=== PATIENT | female | born 1945 | race Caucasian/White ===

== ENCOUNTER 2016-10-01 05:54 | Day surgery (SDC) | payer MEDICARE, OTHER ==
[~2016-10-01] VITALS: Ht 161.3 cm; Wt 62.1 kg
[~2016-10-01 05:54] MED LIST: ASPI-973 PO; ATEN-155 PO; CHOL400T PO; CIPR-231 PO; DIAZ2TAB2 PO; IRON18TA PO; LEVO500T16 PO; NITR100 PO; ONDA-54 PO; PROM12.510 PO; RAMI10CA31 PO; VALS80TA25 PO; VIT1TABL83 PO
[2016-10-01] MEDS ORDERED: fentaNYL-PF 50 mCg/mL 2 mL Inj ONE (05:55)
[2016-10-01] MEDS ORDERED: Ketamine 10 mg/mL 20 mL Inj ONE (05:55)
[2016-10-01] MEDS ORDERED: CeFAZolin 2 Gm/50 mL D5W IV Premix IV SCH (06:00)
[2016-10-01] MEDS: Lactated Ringer's 1,000 ML IV SCH ×2 (06:09→07:58)
[2016-10-01 06:30] VITALS: BP 121/58; PULSE 81; RESP 19; O2SAT 97
[2016-10-01 06:53] VITALS: BP 121/58; PULSE 81; RESP 19; O2SAT 97
--- NOTE | 2016-10-01 07:11 | PCM.HPANE ---
Patient Data Surgeon Admitting Provider: Attending Provider:Katrin Sosa MD Primary Care Physician:Michael Breen Other Provider:Vish Hurst Anesthesia Reason for Visit Ovarian Cancer Ht/WT & BMI Height (Feet): 5 Height (Inches): 3.50 Weight (Kilograms): 62.100 Body Mass Index 23.00 Allergies Coded Allergies: Sulfa (Sulfonamide Antibiotics) (Verified Allergy, Severe, Facial swelling , 04/08/15) morphine (Verified Allergy, Severe, Catatonic state, 04/08/15) Past Anesthesia History Anesthesia History: Denies:: Abnormal Airway, Anesthesia Reactions, Difficult Intubation, Fam Anesthesia Reaction Diabetes History Hx Diabetes?: No MRSA MRSA: No Medications Blood Thinner: Aspirin Hypertension Medication: Yes Home Meds Incl Beta Zeferino: Yes Date Beta Zeferino Taken: Sep 30, 2016 Time Beta Zefreino Taken: 1800 Reported Medications Nitrofurantoin Monohyd/M-Cryst (MacroBid)100 Mg [id number] Mg PO BID Ref 0 09/25/16 Diazepam 2 Mg Tablet2 Mg PO DIRECTED PRN For Anxiety Ref 0 09/25/16 Vit B Comp/C/FA/Iron/Vit E (Vitamin B Complex Tablet)1 Each Tablet1 Each PO DAILY 09/25/16 Iron 18 Mg Lntpzv53 Mg PO DAILY 09/25/16 Cholecalciferol (Vitamin D3) (Vitamin D3)400 Unit [id number] Unit PO DAILY 09/25/16 Atenolol (Tenormin)50 Mg Sqjlnt51 Mg PO BID 30 Days Ref 0 09/25/16 Ramipril (Altace)10 Mg Cuzvrzi41 Mg PO DAILY 09/25/16 Aspirin 81 Mg Vvqqlx55 Mg PO DAILY Ref 0 06/04/16 Valsartan 80 Mg Dnwqwl82 Mg PO DAILY 06/04/16 Discontinued Reported Medications Levofloxacin (Levaquin)500 Mg Wwchyk225 Mg PO DAILY #14 TABLET Ref 0 09/30/16 Ondansetron 8 Mg Tablet8 Mg PO Q8H PRN For Nausea/Vomiting #30 TABLET Ref 3 09/30/16 Promethazine 12.5 Mg Kbpzpg68.5 Mg PO Q6H PRN For Nausea/Vomiting #30 TABLET Ref 3 09/30/16 Ciprofloxacin (Cipro)500 Mg Claeei346 Mg PO BID Ref 0 09/25/16 Ergocalciferol (Vitamin D2) (Vitamin D2)2,000 Unit Tablet2,000 Unit PO DAILY 06/04/16 Amoxicillin/Clav K 500-125 mg (Augmentin 500-125 mg)1 Each Tablet1 Tablet PO HS #20 TABLET Ref 0 06/04/16 Ramipril 10 Mg Enhhmlc95 Mg PO DAILY 06/04/16 History HEENT History: Positive for:: Cataracts (bilateral cataracts) Denies:: Abnormal Airway Difficult Intubation Dysphagia Hearing Problem Sinus Problem TMJ Denture Type: Full- Upper Full- Lower Hx of Heart Problems?: Yes Cardiovascular History: Positive for:: Hypertension Denies:: AICD Abdominal Aortic Aneurism Cardiac Surgery Chest Pain Congestive Heart Failure Edema Heart Murmur Irregular Heartbeat Pacemaker Hx of Respiratory Problem?: Yes Respiratory History: Positive for:: Pulmonary Embolism (hx of pg) Denies:: Asthma COPD Emphysema Oxygen Administration Pneumonia Tuberculosis Use of C-PAP Machine Hx Neurologic Problems?: Yes Neurological History: Denies:: CVA Dizziness Headaches Multiple Sclerosis Parkinson's Disease Hx of GI Problems?: Yes Gastrointestinal History: Positive for:: Liver Disease (ascites- paracentesis 4000ml done aug 2016) Denies:: Gastroesphageal Reflux Gastrointestinal Bleeding Heartburn Hepatitis Hiatal Hernia Rectal Bleeding Hx of Problems?: Yes Genitourinary History: Positive for:: Urinary Tract Infection (after catheterizations- ) Denies:: Kidney Stones Female Hx: Denies:: Currently Problems with Breasts? Skin History: Denies:: History Skin Disorders? Pressure Ulcers Hx Musculoskeletal Problems?: No Musculoskeletal History: Denies:: Back Injury Degenerative Joint Joint Replacement Musculoskeletal Trauma Hx of Psycho/Social Problems?: No Psycho Social History: Denies:: Anxiety Hx Depression Suicide Attempt Hx Surgeries?: Yes (cataracts, hyst, brain tumor, noe ) Hx Any Other Health Problems?: Yes Other History: Positive for:: Cancer (ovarian) Denies:: Thyroid Disease History Blood Transfusions: Denies:: Blood Transfusions Hx Diabetes: No Hx Alcohol Use: NoHx Substance Use: No Smoking Status: Former Smoker Have You Smoked inLast 12 mo: No Stop/Bang Treated for Sleep Apnea?: No Do You Have a CPAP Machine?: No P-Blood Pressure: treated: Yes B- Body Mass Index > 35 kg/m2: No A- Age over 50: Yes N- Neck Large Circumference: No G- Gender Male: No JUAN JOSE Risk Assessment: Low Risk, <3 Yes Risk Assessment Category Category 1A: Patient has history of documented sleep apnea, and HAS NOT received any narcotic, sedative or anesthesia administration during this stay. Category 1B: Patient has history of documented sleep apnea, and HAS received any narcotic , sedative or anesthesia administration during this stay Category 2: Patient has SUSPECTED Obstructive Sleep Apnea, and HAS received any narcotic , sedative or anesthesia administration during this stay. Category 3: Patient has SUSPECTED Obstructive Sleep Apnea and HAS NOT received narcotic, sedative or anesthesia administration during this stay. Category 4: Outpatient in Procedural Areas with known sleep apnea or who screen positive for High Risk via the STOP/BANG questionnaire. Exam Exam Vital Signs Vital Signs Date Time Temp Pulse Resp B/P Pulse Ox O2 Delivery O2 Flow Rate FiO2 10/01/16 06:53 35.4 81 19 121/58 97 Room Air 10/01/16 06:30 35.4 81 19 121/58 97 Room Air General Appearance: Alert, Oriented X3, Cooperative, No Acute Distress HEENT/AIRWAY: MP 2 Lungs: Clear to Auscultation, Normal Air Movement Heart: Exam Unremarkable, Regular Rate/Rhythm, No Murmurs/Rubs/Gallops Meds/Labs/Diagnostics Admission Meds Current Medications Lactated Ringer's (Lr) 1,000 ml @ 120 mls/hr Q8H20M IV Last administered on t 06:09; Start 10/01/16 at 05:00; Stop 10/01/16 at 13:19 Plan Impression Patient chart reviewed, patient interviewed and anesthestic plan with risks, benefits, and alternatives discussed, and informed consent obtained. NPO Status: 7pm ASA Physical Status: ASA3 Severe Disease (metastatic ovarian cancer) Anesthetic Plan: MAC Bene/Risks/Altern/Consents: Yes HP Complete Prior to Induction: Yes Forrest Rene MD Oct 01, 2016 07:11
[2016-10-01] MEDS ORDERED: Lactated Ringer's 1,000 ML IV SCH (07:14)
[2016-10-01] MEDS ORDERED: Lactated Ringer's 500 ML IV PRN (07:14)
[2016-10-01] MEDS ORDERED: Phenylephrine 10,000 mCg/mL Inj IVPUSH PRN (07:15)
[2016-10-01] MEDS ORDERED: Dexamethasone 4 mg/mL Inj IVPUSH PRN (07:15)
[2016-10-01] MEDS ORDERED: MetoCLOpramide 5 mg/mL 2 mL Inj IVPUSH PRN (07:15)
[2016-10-01] MEDS ORDERED: Ondansetron 2 mg/mL 2 mL Inj IVPUSH PRN (07:15)
[2016-10-01] MEDS ORDERED: EPHEDrine Sulfate 50 mg/mL Inj IVPUSH PRN (07:15)
[2016-10-01] MEDS ORDERED: fentaNYL-PF 50 mCg/mL 2 mL Inj IVPUSH PRN (07:15)
[2016-10-01] MEDS ORDERED: Bupivacaine-MPF 0.25%/EPI 30 mL Inj INJ ONE (07:57)
[2016-10-01] MEDS ORDERED: HepLOK Flush 100 unit/mL 5 mL Inj IVFLUSH ONE (08:03)
[2016-10-01] MEDS ORDERED: oxyCODONE-Acetamin 5-325 mg Tablet PO PRN (08:25)
--- NOTE | 2016-10-01 08:28 | PCM.SURGOP ---
Surgical Operative Report Date of Service: Oct 01, 2016 Pre Operative Diagnosis Ovarian cancer Post Operative Diagnosis Ovarian cancer Procedure: PowerPort placement, right internal jugular vein, with ultrasound guidance, with fluoroscopic guidance with interpretation Surgeon and Practical Nurse Clinical Coordinator: Surgeon: Katrin Sosa M.D. Assistants: Juana Brasher, MS 3 Indication for Procedure This is a 71-year-old woman who presented with intra-abdominal ascites and a right pleural effusion, and upon thorough workup was found to have ovarian cancer. PowerPort placement was requested for infusion of chemotherapy. Findings: The port tip was at the cavoatrial junction at the end of the procedure. The port aspirated and flushed easily. It was flushed with 10 mL of heparin solution, 100U/mL, at the end of the case. Procedure Details The patient was brought to the operating room and placed in supine position. General anesthesia with a LMA was smoothly induced. Antibiotics were infused. A warming blanket and SCDs were placed. A pause was performed to confirm the correct patient, procedure, site, and side. The right internal jugular vein was identified with the ultrasound. It was then accessed with a single stick, and a wire was threaded. Fluoroscopy confirmed the wires presence on the right side of the heart. The position of the tip of the wire at the cavoatrial junction was measured. A pocket was made in the tissue overlying the right pectoralis. The port was inserted and sewn into place with two interrupted Prolene stitches. It was then tunneled to the site of the wire using a small counter incision. The port catheter was then cut to the appropriate size as previously measured by the wires position on fluoroscopy. Dilation was then performed under fluoroscopic guidance. The sheath was left in place and the catheter was inserted. The sheath was removed and the two sides were found to be completely intact. The tip of the port was found to be positioned at the cavoatrial junction on fluoroscopy. The catheter was not kinked on fluoroscopy. The port aspirated and flushed easily at the end of the case. It was infused with 10 mL of 100 units/mL heparin solution. The subcutaneous tissue overlying the port was closed with a 3-0 Vicryl stitch. The skin at the port site, the wire access site, and counter incision was closed with a 4-0 subcuticular Monocryl stitch. Marcaine 0.5% with epinephrine was injected in the skin overlying the port as well as the stick site. A sterile dressing was placed. The patient tolerated the procedure well, and was awakened from general anesthesia and taken to the postoperative care unit in good condition. Complications There were no periprocedural complications identified. Surgical Specimen Removed: No Specimen sent to Pathology: No Anesthetic Plan: GA, MAC Grafts, Implants: Implants-See Implant Record Output, Estimated Blood Loss: 1 (ml) Blood Administration during valdovinos: No Katrin Sosa MD Oct 01, 2016 08:28
[2016-10-01 08:29] VITALS: BP 115/53; PULSE 83; RESP 12; O2SAT 95
[2016-10-01 08:59] VITALS: BP 114/44; PULSE 75; RESP 15; O2SAT 94
--- NOTE | 2016-10-01 09:14 | DRSVH ---
PROCEDURE: X-RAY CHEST ONE VIEW, PORTABLE ([id number]) INDICATIONS: port placement TECHNIQUE: One view of the chest was acquired. COMPARISON: [facility], CR, XR CHEST 2VW, 08/19/2016, 16:24. FINDINGS: Surgical changes and devices: Right chest Port-A-Cath is in place. Tip of Port-A-Cath projects over t he distal SVC. Lungs and pleura: Small bilateral pleural fluid collections are noted. Increased opacification noted in the left lung base likely represents compressive atelectasis. No pneumothorax identified. Mediastinum: Mediastinal contours appear normal. Heart size is normal. Bones and chest wall: No suspicious bony lesions. Overlying soft tissues appear unremarkable. IMPRESSION: Status post placement of a Port-A-Cath with tip of the catheter projecting over the dista l SVC. Dictated by: Jeny Patel MD, PhD on 10/01/2016 at 9:11 Approved by: Jeny Patel MD, PhD on 10/01/2016 at 9:13
--- NOTE | 2016-10-01 10:42 | PCM.ANEP1 ---
Post Anesthesia Phase 1 PACU Phase 1 Assessment Date of Service: Oct 01, 2016 Vital Signs Vital Signs Date Time Temp Pulse Resp B/P Pulse Ox O2 Delivery O2 Flow Rate FiO2 10/01/16 08:59 36.5 75 15 114/44 94 Room Air 10/01/16 08:29 36.6 83 12 115/53 95 Room Air 10/01/16 06:53 35.4 81 19 121/58 97 Room Air 10/01/16 06:30 35.4 81 19 121/58 97 Room Air Anesthetic Administered: MAC Level of Alertness: Awake, talking NAVARRETE's with Equal Strength: Yes Pain: No Nausea or Vomiting: No Oxygen Delivery: Nasal Cannula Lungs: Clear to Auscultation, Normal Air Movement Dermatome Level: Full Sensation Forrest Rene MD Oct 01, 2016 10:42
--- NOTE | 2016-10-01 10:43 | PCM.ANEP2 ---
Post Anesthesia Evaluation ASA/CMS Post Anesthesia VS in Patient's Normal Range?: Yes Resp Stable; Airway Patent?: Yes CV Function & Hydration Stable: Yes Mental Status Recovered?: Yes Pain control Satisfactory?: Yes N/V Control Satisfactory?: Yes Forrest Rene MD Oct 01, 2016 10:42
[2016-10-03] MEDS ORDERED: PROM12.510 PO (09:33)
[2016-10-03] MEDS ORDERED: ONDA-54 PO (09:33)
[2016-10-03] MEDS ORDERED: LEVO500T79 PO (09:33)
== END 2016-10-01 23:59 | disposition home or self-care (01) ==
LOC: SAS 05:54
PROVIDERS: ATTEND Surgery
DX: C56.9 Malignant neoplasm of unspecified ovary (principal); I10 Essential (primary) hypertension; R73.03 Prediabetes; Z79.82 Long term (current) use of aspirin; Z87.891 Personal history of nicotine dependence; Z86.711 Personal history of pulmonary embolism
CPT/HCPCS: 36561; 71010; 77001; C1788; J0690; J1642; J2250; J7120

== ENCOUNTER 2016-10-20 14:55 | Emergency (ER) | payer MEDICARE, OTHER ==
[~2016-10-20] VITALS: Ht 160 cm; Wt 52.3 kg
[~2016-10-20 14:55] MED LIST changes: -CIPR-231 PO; -LEVO500T16 PO; +LEVO500T79 PO
[2016-10-20 14:58] VITALS: BP 100/42; PULSE 97; RESP 20; O2SAT 100
--- NOTE | 2016-10-20 15:22 | ED.REPORT ---
HPI-General Illness Date of Service Oct 20, 2016 ED Provider: Dr. Jerome Jewell M.D. A 71 year old female with a history of hypertension, PE, and ovarian cancer with metastasis to abdomen presents to the ED with constipation onset two weeks ago. The patient also reports abdominal pain, decreased appetite, recent weight loss, and reduced liquid intake. She denies vomiting, fever, or cough. Since the diagnosis of her cancer, the patient has received one dose of chemotherapy and has underwent paracentesis twice, most recently two weeks ago. She has been on a purely liquid diet of Ensure. Last night she used a mineral oil enema, with brown liquid drainage but no solids. Nursing Notes Stated Complaint: ABDOMINAL PAIN Chief Complaint: General Complaint Nursing Notes Reviewed: Yes Allergies: Coded Allergies: Sulfa (Sulfonamide Antibiotics) (Verified Allergy, Severe, Facial swelling , 10/20/16) morphine (Verified Allergy, Severe, Catatonic state, 10/20/16) Scheduled Aspirin (Aspirin) 81 Mg Tablet 81 MG PO DAILY Atenolol (Tenormin) 50 Mg Tablet 50 MG PO BID Cholecalciferol (Vitamin D3) (Vitamin D3) 400 Unit Tablet 400 UNIT PO DAILY Iron (Iron) 18 Mg Tablet 36 MG PO DAILY Levofloxacin (Levofloxacin) 500 Mg Tablet 500 MG PO DAILY Nitrofurantoin Monohyd/M-Cryst (MacroBid) 100 Mg Capsule 100 MG PO BID Ramipril (Altace) 10 Mg Capsule 10 MG PO DAILY Valsartan (Valsartan) 80 Mg Tablet 80 MG PO DAILY Vit B Comp/C/FA/Iron/Vit E (Vitamin B Complex Tablet) 1 Each Tablet 1 EACH PO DAILY Scheduled PRN Diazepam (Diazepam) 2 Mg Tablet 2 MG PO DIRECTED PRN PRN For Anxiety Ondansetron (Ondansetron) 8 Mg Tablet 8 MG PO Q8H PRN PRN For Nausea/Vomiting Promethazine (Promethazine) 12.5 Mg Tablet 12.5 MG PO Q6H PRN PRN For Nausea/ Vomiting General Time Seen by MD: 15:21 Chief Complaint Other (Constipation) Hx Obtained From: Patient Arrived By: Walk-in Sudden in Onset?: No Onset Occurred: More than a week ago... (2 weeks) Symptom Duration: Since onset Location: : Abdomen Quality: Painful Severity: Current: Moderate Severity: Maximum: Moderate Associated with: Reports: Abdominal pain, Denies: Cough, Fever, Vomiting Pertinent Negative: Relieved by nothing Context Related History: Reports Cancer Recent Healthcare: Recent doctor visit Similar Sx Previous: No Past Medical History Past Medical History Recurrent UTIs Ovarian cancer with metastasis to abdomen Cataracts Pulmonary Embolism Reports: Hypertension Past Surgical History Paracentesis x2 Smoking History Former Smoker Social History Other Social History: Ambulatory Status Independent Review of Systems + decreased appetite, reduced liquid intake Full Review of Systems Constitutional: Reports: Recent wt loss, Denies: Fever Respiratory: Denies: Non-productive cough GI: Reports: Abdominal pain, Constipation, Denies: Nausea, Vomiting Complete sys rev & neg: except as marked. Physical Exam Vital Signs Vital Signs Date Time Temp Pulse Resp B/P Pulse Ox O2 Delivery O2 Flow Rate FiO2 10/20/16 18:28 36.5 81 14 93/41 99 Room Air 10/20/16 14:58 36.9 97 20 100/42 100 Room Air Initial VS: Reviewed Head / Eyes: Atraumatic, Normocephalic ENT: Conjunctiva normal, No scleral icterus Neck: Supple, Full range of motion Respiratory: Breath sounds normal, Clear to auscultation, No respiratory distress Cardiovascular: Regular rate & rhythm, Heart sounds normal Skin: Warm, Dry Neurologic: Alert, Oriented, Nonfocal Psychiatric: Mood/affect normal, Behavior normal, Normal thought content General/Constitutional: Awake, Alert Abdomen: Soft Tenderness/Guarding/Rebound: Positive: Tender diffuse (Significantly tender to light palpation) Rectum / Perineum: Atraumatic, No fecal impaction Interpretation & Diagnostics Lab Results Interpretation Result Diagram: 10/20/16 1435 10/20/16 1435 Test 10/20/16 14:35 10/20/16 16:03 10/20/16 17:16 White Blood Count 12.1th/mm3 (3.8-10.1) Red Blood Count 3.56mil/mm3 (3.90-5.20) Hemoglobin 8.0g/dL (12.0-15.6) Hematocrit 25.9% (35.0-46.0) Mean Corpuscular Volume 72.8fL (81-100) Mean Corpuscular Hemoglobin 22.5pg (27.0-35.0) Mean Corpuscular Hemoglobin Concent 30.9% (32.0-37.0) Red Cell Distribution Width 18.6% (12.3-15.4) Platelet Count 391bil/L (150-400) Neutrophils (%) (Auto) 85.2% (40-74) Lymphocytes (%) (Auto) 9.8% (14-46) Monocytes (%) (Auto) 4.3% (4-12) Eosinophils (%) (Auto) 0.1% (0-5) Basophils (%) (Auto) 0.3% (0-3) Sodium Level 130mEq/L (134-144) Potassium Level 3.9mEq/L (3.5-5.2) Chloride Level 91mEq/L (97-108) Carbon Dioxide Level 23mmol/L (18-29) Blood Urea Nitrogen 15mg/dL (8-27) Creatinine 0.34mg/dL (0.57-1.00) Estimat Glomerular Filtration Rate 273mL/min (>59) Glucose Level 79mg/dL (60-99) Calcium Level 7.7mg/dL (8.5-10.1) Total Bilirubin 0.5mg/dL (0.0-1.2) Aspartate Amino Transf (AST/SGOT) 21U/L (0-50) Alanine Aminotransferase (ALT/SGPT) 8U/L (0-32) Alkaline Phosphatase 73U/L (25-165) Total Protein 5.5g/dL (6.4-8.4) Albumin 2.2g/dL (3.4-5.0) Hold Szymanski Top Tube Received (Received) Urine Color Yellow (YELLOW) Urine Appearance Clear (CLEAR,HAZY) Urine pH 5.5 (5.0-8.0) Urine Specific [place] 1.025 (1.003-1.035) Urine Protein Negativemg/dL (NEG,TRACE) Urine Glucose (UA) Negativemg/dL (NEGATIVE) Urine Ketones 40mg/dL (NEGATIVE) Urine Occult Blood Negative (NEGATIVE) Urine Nitrite Negative (NEGATIVE) Urine Bilirubin Negative (NEGATIVE) Urine Urobilinogen Normalmg/dL (NORMAL) Urine Leukocyte Esterase Negative (NEGATIVE) Urine RBC 0-2/hpf (0-2) Urine WBC 0-5/hpf (0-5) Urine Epithelial Cells Few/hpf (NONE-MOD) Urine Crystals None seen (NONE SEEN) Urine Bacteria Few/hpf (NONE-FEW) Urine Hyaline Casts None/lpf (NONE) Urine Granular Casts None seen (NONE SEEN) Urine Waxy Casts None seen (NONE SEEN) Urine Red Blood Cell Casts None seen (NONE SEEN) Urine White Blood Cell Casts None seen (NONE SEEN) Urine Mucus Present (None Seen) Urine Trichomonas None seen (NONE SEEN) Urine Yeast None (NONE SEEN) Urinalysis Comment None Urine Culture Reflexed Not indicated Re-Eval/Medical Decision Med Decision/Clinical Course Patient feels much improved. Time of Eval: 17:59 Patient Status: Condition improved, Moderate relief Re-Evaluation/Progress Note: Patient feels much better. Discussed with patient lab results, diagnosis, and plan for discharge. Follow-up and return to the ER instructions given. Patient agrees with plan for care and all questions were addressed. Counseled Regarding: Diagnosis, Lab results, Need for follow-up, When/why to return to ED Discharge & Departure Primary Impression: Abdominal pain Abdominal location: generalized Qualified Code: R10.84 - Generalized abdominal pain Disposition: Home Discharge Condition All VS Reviewed: Yes Condition: Improved Patient Instructions: Acute Abdominal Pain (ED) Additional Instructions: No immediately dangerous cause for your abdominal pain is discovered. You do not have a fecal impaction. I recommend Tylenol 1000 mg every 6 hours as needed for your pain. Follow-up with Dr. Bansal in 1-2 days for further evaluation. Referrals: Michael Breen (PCP) Scribe Attestation Portions of this note were transcribed by Sandra Landa. I, Dr. Jewell, personally performed the history, physical exam, and medical decision-making; I reviewed and confirmed the accuracy of the information in the transcribed note. Signed by: Gabriele Yen, 10/20/2016, 18:35 copies to: Michael Breen; Cole Bansal MD, Kirk H MD Oct 20, 2016 15:22 SANDRA LANDA Oct 20, 2016 15:45
[2016-10-20] MEDS ORDERED: 0.9% Sodium Chloride 1,000 ML IV ONE (15:35)
[2016-10-20] MEDS ORDERED: Acetaminophen IV 1,000 MG in IV Premix 1 EACH IV ONE (15:35)
[2016-10-20 16:24] LABS: Mean Corpuscular Hemoglobin 22.5 pg (27.0-35.0); Mean Corpuscular Volume 72.8 fL (81-100); Platelet Count 391 bil/L (150-400)
[2016-10-20 17:48] LABS: APPEARANCE,URINE CLEAR (CLEAR,HAZY); COLOR,URINE YELLOW (YELLOW); OCCULT BLOOD,URINE NEGATIVE (NEGATIVE); PH,URINE 5.5 (5.0-8.0)
[2016-10-20 17:49] LABS: UROBILINOGEN,URINE NORMAL (NORMAL)
[2016-10-20 18:12] LABS: BASOPHILS % (AUTO) 0.3 % (0-3); EOSINOPHILS % (AUTO) 0.1 % (0-5); MONOCYTES % (AUTO) 4.3 % (4-12); NEUTROPHILS % (AUTO) 85.2 % (40-74)
[2016-10-20 18:28] VITALS: BP 93/41; PULSE 81; RESP 14; O2SAT 99
== END 2016-10-20 19:10 | disposition home or self-care (01) ==
LOC: SED 14:55
DX: R10.84 Generalized abdominal pain (principal); K59.00 Constipation, unspecified; I10 Essential (primary) hypertension; Z87.440 Personal history of urinary (tract) infections; Z79.82 Long term (current) use of aspirin; Z87.891 Personal history of nicotine dependence; Z88.2 Allergy status to sulfonamides; Z88.5 Allergy status to narcotic agent
CPT/HCPCS: 80053; 81000; 82378; 85025; 96361; 96374; 99285; J0131; J7030